=== PATIENT | male | born 1940 | race Caucasian/White ===

== ENCOUNTER → 2017-04-03 | Outpatient (CLI) | payer MEDICARE, BC ==
[~2017-04-03] MED LIST: TAMS0.4C2 PO
[2017-04-03 13:56] LABS: PATH.CAST-FLAG NOT PRESENT; SPERM-FLAG NOT PRESENT; SRC-FLAG NOT PRESENT; XTAL-FLAG NOT PRESENT; YLC-FLAG NOT PRESENT
== END | disposition home or self-care (01) ==
LOC: STAR 12:56
PROVIDERS: ATTEND Student in an Organized Health Care Education/Training Program
DX: Z01.818 Encounter for other preprocedural examination (principal); R94.31 Abnormal electrocardiogram [ECG] [EKG]; N20.0 Calculus of kidney; R31.0 Gross hematuria
CPT/HCPCS: 81001; 87086; 93005

== ENCOUNTER 2017-04-10 13:38 | Day surgery (SDC) | payer MEDICARE, BC ==
[~2017-04-10] VITALS: Ht 182.9 cm; Wt 77.7 kg
[2017-04-10 13:58] VITALS: BP 144/100
[2017-04-10] MEDS ORDERED: LACTATED RINGERS 1,000 ML IV SCH (14:01)
[2017-04-10] MEDS ORDERED: METOCLOPRAMIDE 5 MG/ML, 2ML IV PRN (15:00)
[2017-04-10] MEDS ORDERED: FENTANYL PF 100 MCG/2ML IV PRN (15:00)
[2017-04-10] MEDS ORDERED: ONDANSETRON 2MG/ML, 2ML IVPush PRN (15:00)
[2017-04-10] MEDS ORDERED: hydrALAzine 20 MG/ML, 1ML IV PRN (15:00)
[2017-04-10] MEDS ORDERED: HYDROmorphone 1 MG/ML, 1ML IV PRN (15:00)
[2017-04-10] MEDS ORDERED: ALBUTEROL SULFATE 2.5 MG/3 ML NPPB PRN (15:00)
[2017-04-10] MEDS ORDERED: MEPERIDINE/PF 25MG/0.5ML IVPush PRN (15:00)
[2017-04-10] MEDS ORDERED: OXYcodone 5 MG/5 ML ORAL.SOL UDC PO PRN (15:00)
[2017-04-10] MEDS ORDERED: EPHEDRINE 50 MG/ML, 1ML IVPush PRN (15:00)
[2017-04-10] MEDS ORDERED: LABETALOL 5MG/ML, 20ML IV PRN (15:00)
[2017-04-10] MEDS ORDERED: KETOROLAC 30 MG/1 ML IV PRN (15:00)
[2017-04-10] MEDS ORDERED: PROMETHAZINE 25 MG/ML, 1ML IV PRN (15:00)
[2017-04-10] MEDS ORDERED: HYDROcodone/APAP 7.5-325MG/15ML UDC PO PRN (15:00)
[2017-04-10] MEDS ORDERED: METOPROLOL 1 MG/ML, 5ML IV PRN (15:00)
[2017-04-10] MEDS ORDERED: ACETAMINOPHEN 325 MG TABLET PO PRN (15:00)
[2017-04-10] MEDS ORDERED: CEFAZOLIN 1,000 MG ONE (15:24)
[2017-04-10] MEDS ORDERED: SUCCINYLCHOLINE 20 MG/ML, 10ML ONE (15:24)
[2017-04-10] MEDS ORDERED: ROCURONIUM 10 MG/ML ONE (15:24)
[2017-04-10] MEDS ORDERED: GLYCOPYRROLATE 0.4 MG/2 ML, 2ML ONE (15:24)
[2017-04-10] MEDS ORDERED: PROPOFOL 10 MG/ML, 20ML ONE (15:24)
[2017-04-10] MEDS ORDERED: DEXAMETHASONE 4 MG/ML, 1ML ONE (15:24)
[2017-04-10] MEDS ORDERED: ONDANSETRON 2MG/ML, 2ML ONE (15:24)
[2017-04-10] MEDS ORDERED: FENTANYL PF 100 MCG/2ML ONE (15:24)
[2017-04-10] MEDS ORDERED: MIDAZOLAM 1 MG/ML, 2ML ONE (15:24)
== END 2017-04-10 18:55 ==
LOC: OUT 13:38
PROVIDERS: ATTEND Student in an Organized Health Care Education/Training Program
DX: N20.0 Calculus of kidney (principal)
CPT/HCPCS: 50590; 52332; C1769; C2617; J0330; J0690; J1100; J2250; J2405; J2704; J3010; J7120